=== PATIENT | male | born 1970 | race Two or more races ===

== ENCOUNTER 2021-08-03 09:11 | Outpatient (REF) | payer OTHER, SELFPAY ==
[2021-08-03 09:33] LABS: Binax Internal Control QC Valid; Binax Now Covid-19 Ag Negative (Negative)
== END 2021-08-03 09:12 | disposition home or self-care (01) ==
LOC: HO.LAB 09:11
PROVIDERS: Visit Provider Internal Medicine
DX: Z13.89 Encounter for screening for other disorder (principal)

== ENCOUNTER 2022-03-20 08:05 | Outpatient (REF) | payer OTHER, SELFPAY ==
[2022-03-20 08:58] LABS: COVID-19 Test Positive (Negative)
== END 2022-03-20 08:06 | disposition home or self-care (01) ==
LOC: HO.LAB 08:05
PROVIDERS: Visit Provider Internal Medicine
DX: Z20.822 Contact with and (suspected) exposure to COVID-19 (principal)
CPT/HCPCS: 87635; C9803

== ENCOUNTER 2022-03-24 08:14 | Outpatient (REF) | payer OTHER, SELFPAY ==
[2022-03-24 08:48] LABS: COVID-19 Test Positive (Negative); IDNOW Serial# 16C4AD1C
== END 2022-03-24 08:15 | disposition home or self-care (01) ==
LOC: HO.LAB 08:14
PROVIDERS: Visit Provider Internal Medicine
DX: Z20.822 Contact with and (suspected) exposure to COVID-19 (principal)
CPT/HCPCS: 87635; C9803

== ENCOUNTER 2022-03-27 08:20 | Outpatient (REF) | payer OTHER, SELFPAY ==
[2022-03-27 09:13] LABS: IDNOW Serial# 55D5AD1C
[2022-03-27 09:14] LABS: COVID-19 Test Negative (Negative)
== END 2022-03-27 08:21 | disposition home or self-care (01) ==
LOC: HO.LAB 08:20
PROVIDERS: Visit Provider Internal Medicine
DX: Z20.822 Contact with and (suspected) exposure to COVID-19 (principal)
CPT/HCPCS: 87635; C9803

== ENCOUNTER 2022-06-01 07:58 | Emergency (ER) | payer OTHER, SELFPAY ==
--- NOTE | ~2022-06-01 | XR_ITS ---
EXAMINATION: XR LUMBOSACRAL SPINE CLINICAL INFORMATION: Work injury with right back pain COMPARISON: None TECHNIQUE: Three views of the lumbosacral spine. FINDINGS: No acute finding is seen. Some mild spondylitic endplate changes are seen with some minimal osteophytes. Vertebral body heights and disc spaces are well maintained. No acute fractures or bony destructive lesions are seen. XR/XR lumbar spine 2-3V IMPRESSION: No acute finding. Mild degenerative changes as described above.
[2022-06-01 08:01] VITALS: BP 139/98; PULSE 96; RESP 18; TEMP 36.6; O2SAT 96; BMI 24.2
--- NOTE | 2022-06-01 09:23 | ED.BACK ---
HPI - Back Pain/Injury General Chief Complaint: Back Pain/Injury Stated Complaint: back inj work related Time Seen by Provider: 06/01/22 09:09 Source: patient Mode of arrival: ambulatory Limitations: no limitations History of Present Illness HPI Narrative: Patient is a 52-year-old male who presents to the emergency department for evaluation of lower back pain. He reports that 3 days ago in the morning while at work he was lifting a steel plate when he suddenly felt a pop in his back. This happened in [facility]. He was evaluated at an urgent care, states that he did not receive any imaging, he was given prescription for ibuprofen and a muscle relaxant which he does not recall the name of the was advised to take a few days off of work. He reports no known injury/diagnosis to his back but he does endorse a history of chronic back aching. Currently pain is located to the right lower back with minimal radiation into the buttock. Has not been alleviated with ibuprofen or muscle relaxant. He is requesting an MRI, he does not have a primary care provider to follow up with. He took ibuprofen prior to his arrival here today, drove himself here today common reports he would not have a ride home if he received any pain medications that may impair is driving. Denies fevers, chills, burning with micturition, urinary frequency/urgency/hesitancy, bladder or bowel dysfunction, numbness or tingling of the perineum or bilateral legs. Denies any recent surgical procedures, any known immune compromising conditions, personal history of cancer, or IV drug usage. MD elicited complaint: back pain Related Data Previous Rx's Medication Instructions Recorded diazepam 2 mg tablet 2 mg PO BEDTIME PRN muscle spasm 06/01/22 #7 tabs Allergies Allergy/AdvReac Type Severity Reaction Status Date / Time No Known Allergies Allergy Mild NOT Unverified 03/18/20 17:46 APPLICABLE Review of Systems Review of Systems: Constitutional: No weight loss, fever, chills, weakness or fatigue. Skin: No rash or itching. Cardiovascular: No chest pain. No palpitations or pedal edema. Respiratory: No shortness of breath, cough or sputum production. Gastrointestinal: No nausea, vomiting or diarrhea. No abdominal pain or blood in stool. Genitourinary: No burning micturition. No urinary frequency or incontinence. Neurologic: No headache, dizziness, syncope, unilateral weakness, ataxia, numbness or tingling in the extremities. No change in bowel or bladder control. Musculoskeletal: + Back pain as noted in HPI. No joint pain or stiffness. Hematologic: No bleeding or bruising. Yes all other systems are reviewed and are negative [facility] Past Medical History Attestation statement: The following information was validated with the patient. Source: old records reviewed Social History Social History Advance Directives: No Physical Exam Vital Signs: Vital Signs: Last Vital Signs Temp 97.9 F 06/01/22 08:01 Pulse 96 06/01/22 08:01 Resp 18 06/01/22 08:01 BP 139/98 H 06/01/22 08:01 Pulse Ox 96 06/01/22 08:01 O2 Del Method 06/01/22 08:01 BMI result Body Mass Index 24.2 Vital signs have been reviewed as normal and appeared to be correct. Blood pressure normal.? Heart rate normal.? Respiration rate normal. Temperature normal.? Oxygen saturation normal. Appearance: Alert.?Oriented to person, place and time. No acute distress.?Normal affect. Neck: Normal inspection.? Neck supple.?? CVS: Heart sounds normal. Normal heart rate and rhythm.? Pulses normal; bilateral radial pulses 2+, bilateral posterior tibial/dorsalis pedis pulses 2+.? Respiratory: No respiratory distress.? Lung sounds clear to auscultation bilaterally?? Abdomen: Soft and non-tender. Normoactive bowel sounds. No pulsatile mass.?? Skin: Skin warm and dry.? Normal skin color.? Extremities: No lower extremity edema.? Back: + mild right paraspinal muscular tenderness from lumbar region to coccyx. No CVA tenderness. No midline spinal tenderness, step-off's, or deformity. Full ROM intact in bilateral lower extremities. Straight leg test positive on right; Straight leg test negative on left. No rashes, lesions, areas of induration or fluctuance, or signs of infection noted. Neuro: Moves all extremities spontaneously. 5/5 strength in hip extension/flexion, abduction, adduction. Sensation to light touch intact bilaterally. Patellar and Achilles reflex 2+ bilaterally. No ataxia, gait slow and steady. No focal neuro deficits. Course Course Course Narrative: Patient is a 52-year-old male with no reported past medical history presenting to emergency department for evaluation of work related injury resulting in lower back pain. No midline lumbar spine tenderness, step-offs, deformities, he does have paraspinal muscular tenderness upon palpation, no red flag symptoms. At this time pain is most consistent with muscular pain, although cannot completely exclude herniated disc. On neurological exam there are no deficits. Not consistent with spinal infection, epidural abscess, epidural abscess. Patient requesting to have MRI imaging, reviewed no indication for this modality at this time, offered to have XR imaging to exclude fracture or malalignment, he is agreeable to this plan.. No high risk past medical history including incontinence, fever, immunosuppression, recent surgery or lumbar puncture, coagulopathy, significant trauma, recent unintentional weight loss, pulsatile mass, history of cancer, history of TB, history of IV drug use that would warrant MRI or CT. Not consistent with pyelonephritis, urinary tract infection, renal calculi. On exam no concern for cauda equina syndrome. No additional imaging is currently indicated at this time. Reevaluation(s) Reevaluation #1: XR reveals no acute findings are mild degenerative changes however vertebral body heights and disc spaces are well maintained. Reviewed these findings with patient. Advised Plan for discharge home with new prescription for diazepam, advised not to take this in addition to muscle relaxants, advised medication may make him drowsy not to drive operate machinery or work while taking this medication. Provided contact information for orthopedic office associated to this hospital, as well as local spine and retail service specialist, and follow-up with a primary care provider, patient agreed with plan. Time: 10:46 MDM - Back Pain/Injury Differential Diagnosis Differential diagnosis: Likely lumbar radiculopathy, sciatica and strain of lumbar region Medical Records Attestation: I reviewed the patient's medical records. Imaging Data XR Lumbar spine: Radiologist's impression: FINDINGS: No acute finding is seen. Some mild spondylitic endplate changes are seen with some minimal osteophytes. Vertebral body heights and disc spaces are well maintained. No acute fractures or bony destructive lesions are seen. XR/XR lumbar spine 2-3V IMPRESSION: No acute finding. Mild degenerative changes as described above. Discharge Plan Discharge Clinical Impression: Strain of lumbar region Patient Disposition: Home, Self-Care Instructions: Low Back Strain (ED), Lower Back Exercises (ED) Additional Instructions: As discussed, you have been given a new prescription for diazepam to help with your pain, this may be used at bedtime as needed. It may make you drowsy, he should not drive, drink alcohol, or work while taking this medication. Do not take the previously prescribed muscle relaxant at the same time as this medication. Continue use of ibuprofen. You have been provided with contact information for the orthopedic office associated with this hospital. However, as we discussed you may require further evaluation from a managed care specialist, and/or referral from your primary care provider. [facility] [address] [place] [id number] Given that this was a work-related injury I recommend that you follow-up with your employer to determine what their process for workman's comp/work related injuries may include. You may return to the emergency department with any new or worsening symptoms or concerns. Prescriptions: New diazepam 2 mg tablet 2 mg PO BEDTIME PRN (Reason: muscle spasm) Qty: 7 0RF Referrals: Reji Mckinney MD [Physician] - (work injury, back pain)
== END 2022-06-01 10:59 | disposition home or self-care (01) ==
PROVIDERS: Emergency Provider Emergency Medicine
DX: S39.012A Strain of muscle, fascia and tendon of lower back, initial encounter (principal); X50.0XXA Overexertion from strenuous movement or load, initial encounter; Y93.9 Activity, unspecified; Y92.59 Other trade areas as the place of occurrence of the external cause; Y99.0 Civilian activity done for income or pay
CPT/HCPCS: 72100; 99282; 99283